=== PATIENT | female | born 1950 | race Caucasian/White ===

== ENCOUNTER → 2017-09-25 | Outpatient (CLI) | payer MEDICARE, OTHER ==
[~2017-09-25] MED LIST: NYST60PO TP; SULF1TAB24 PO
== END | disposition home or self-care (01) ==
LOC: CFH 15:11
PROVIDERS: ATTEND Student in an Organized Health Care Education/Training Program
DX: Z12.31 Encounter for screening mammogram for malignant neoplasm of breast (principal); Z85.3 Personal history of malignant neoplasm of breast; Z92.3 Personal history of irradiation; Z90.11 Acquired absence of right breast and nipple
CPT/HCPCS: G0202

== ENCOUNTER 2018-11-15 12:43 | Outpatient (CLI) | payer MEDICARE | END 2018-11-15 23:59 | disposition home or self-care (01) | LOC: CFH 12:43 | PROVIDERS: ATTEND Family Medicine | DX: Z12.31 Encounter for screening mammogram for malignant neoplasm of breast (principal); M85.88 Other specified disorders of bone density and structure, other site; Z85.3 Personal history of malignant neoplasm of breast | CPT/HCPCS: 77080; 77067 ==

== ENCOUNTER → 2019-11-18 | Outpatient (CLI) | payer MEDICARE | END | disposition home or self-care (01) | LOC: CFH 10:46 → EDSTATUS 11:00 | PROVIDERS: ATTEND Family Medicine | DX: Z12.31 Encounter for screening mammogram for malignant neoplasm of breast (principal) | CPT/HCPCS: 77063; 77067 ==

== ENCOUNTER → 2019-12-18 | Outpatient (CLI) | payer MEDICARE | END | disposition home or self-care (01) | LOC: CFH 10:46 | PROVIDERS: ATTEND Family Medicine | DX: Z13.6 Encounter for screening for cardiovascular disorders (principal); I25.10 Atherosclerotic heart disease of native coronary artery without angina pectoris; E78.5 Hyperlipidemia, unspecified | CPT/HCPCS: 75571 ==

== ENCOUNTER 2020-04-04 10:00 | Emergency (ER) | payer MEDICARE ==
[~2020-04-04] VITALS: Ht 160 cm; Wt 93.4 kg
[2020-04-04] MEDS ORDERED: MECLIZINE CHEWABLE 25 MG TAB ONE (10:56)
[2020-04-04] MEDS ORDERED: ONDANSETRON ODT 4 MG ONE (10:56)
[2020-04-04] MEDS ORDERED: ONDANSETRON ODT 4 MG PO ONE (11:00)
[2020-04-04] MEDS ORDERED: MECLIZINE CHEWABLE 25 MG TAB PO ONE (11:00)
--- NOTE | 2020-04-04 11:03 | NUR ---
phlebotomy is at the bedside for blood sampling
[2020-04-04 11:11] LABS: BASOPHILS # (AUTO) 0.01 x10^3/uL (0-0.1); BASOPHILS % (AUTO) 0 % (0-1); EOSINOPHILS # (AUTO) 0.06 x10^3/uL (0-0.4); EOSINOPHILS % (AUTO) 1 % (1-7); LYMPHOCYTES # (AUTO) 1.22 x10^3/uL (1-3.4); LYMPHOCYTES % (AUTO) 17 % (22-44); MD NO; MEAN CORPUSCULAR HEMOGLOBIN 29.6 pg (27.0-34.8); MEAN CORPUSCULAR HGB CONC 33.3 g/dL (32.4-35.8); MEAN PLATELET VOLUME 7.9 fL (7.4-10.4); MONOCYTES # (AUTO) 0.19 x10^3/uL (0.2-0.8); MONOCYTES % (AUTO) 3 % (2-9); NEUTROPHILS # (AUTO) 5.57 x10^3/uL (1.8-6.8); NEUTROPHILS % (AUTO) 79 % (42-75); PLATELET COUNT 229 x10^3/uL (130-400); RED BLOOD COUNT 5.71 x10^6/uL (3.82-5.3)
[2020-04-04 11:24] LABS: ANION GAP 9 mmol/L (5-15); CALCIUM 9.1 mg/dL (8.5-10.1); CHLORIDE 109 mmol/L (98-107); CREATININE 1.04 mg/dL (0.55-1.02)
--- NOTE | 2020-04-04 11:54 | NUR ---
pt stating marked improvement from medicines administered. we are awaiting an md to recheck
--- NOTE | 2020-04-04 12:14 | NUR ---
po fluids andsolids provided for p.o. challenge.
--- NOTE | 2020-04-04 12:55 | NUR ---
pt ambulating in room with family to evaluate dizziness.
--- NOTE | 2020-04-04 12:59 | NUR ---
larissa (rn) is assuming care of this pt at this time. sbar report was exchanged at the bedside.
--- NOTE | 2020-04-04 13:17 | NUR ---
REPORT RECEIEVED FROM BIN CHEUNG. PT UP TO AMBUALATE, STATES SOME DIZZINESS, ERMD AWARE. ERMD AT BEDSIDE FOR RE ASSESSMENT, PT TO GO TO MRI. PT AWARE OF POC. PT RESTING BACK IN BED. CONT TO MONITOR.
--- NOTE | 2020-04-04 13:23 | NUR ---
PT TO MRI.
--- NOTE | 2020-04-04 14:00 | NUR ---
TASK RN NOTE: PT RETURNED FROM MRI, SITTING UP IN BED. REPORTS SLIGHT DIZZINESS "NOT NEARLY BAD I WAS. THANKFULLY THINGS AREN'T SPINNING AROUND LIKE THEY WERE. I THINK MOSTLY THE LIGHT HEADEDNESS IS BECAUSE I HAVEN'T EATEN." NAD NOTED AT THIS TIME, NO WOB NOTED. PT DENIES PAIN. SIDE RAILS UP, CALL LIGHT IN REACH. AWAITING MRI RESULTS.
--- NOTE | 2020-04-04 14:24 | NUR ---
PT CHART UP FOR RECHECK.
--- NOTE | 2020-04-04 15:08 | NUR ---
PT OK FOR D/C. PT ABLE TO AMBULTE SAFELY ON OWN, STEADY GAIT. PT VERBALIZED UNDERSTANDING OF D/C ORDERS.
[2020-04-04 15:12] VITALS: BP 128/71
== END 2020-04-04 15:17 | disposition home or self-care (01) ==
LOC: ED 10:55
DX: R42 Dizziness and giddiness (principal); R11.2 Nausea with vomiting, unspecified; R51 Headache; R94.31 Abnormal electrocardiogram [ECG] [EKG]
CPT/HCPCS: 36415; 70551; 80048; 85025; 93005; 99285; Q0162

== ENCOUNTER → 2020-11-25 | Outpatient (CLI) | payer MEDICARE | END | disposition home or self-care (01) | LOC: CFH 11:14 | DX: Z12.31 Encounter for screening mammogram for malignant neoplasm of breast (principal); M85.88 Other specified disorders of bone density and structure, other site | CPT/HCPCS: 77063; 77067; 77080 ==